=== PATIENT | female | born 1985 | race Two or more races ===

== ENCOUNTER 2021-08-18 10:09 | Outpatient (REF) | payer MEDICAID, SELFPAY ==
[2021-08-18 10:32] LABS: MANUAL DIFF FLAG NO
[2021-08-18 10:56] LABS: Appearance Urine CLEAR; Color Urine STRAW; Glucose Urine UA NEG (NEG); Leukocyte Esterase Urine TRACE (NEG); Nitrite Urine NEG (NEG); PH 6.5 (5.0-8.0); Urine Blood NEG (NEG); Urine Ketones NEG (NEG); Urine Protein NEG (NEG-TRACE)
[2021-08-18 10:56] LABS: Basophils Percent Auto 0.1 % (0-2); Eosinophils Absolute Auto 0.2 X10*3/uL (0.0-0.4); Hematocrit 30.7 % (37.0-47.0); Hemoglobin 10.6 g/dl (12.0-16.0); Imm Gran Abs Auto 0.07 X10*3/uL (0.00-0.03); Imm Gran Pct Auto 0.9 % (0.0-0.4); Lymphocytes Absolute Auto 1.6 X10*3/uL (1.2-4.9); Lymphocytes Percent Auto 20.6 % (20-40); Mean Corpuscular HGB Conc 34.5 g/dl (31.0-35.0); Mean Corpuscular Hemoglobin 30.5 pg (27.0-33.0); Mean Corpuscular Volume 88.5 fL (80.0-98.0); Mean Platelet Volume 9.2 fL (9.4-12.3); Monocytes Absolute Auto 0.4 X10*3/uL (0.1-1.2); Monocytes Percent Auto 5.6 % (2-11); Neutrophils Absolute Auto 5.4 x10*3/uL (2.0-8.3); Neutrophils Percent Auto 70.8 % (45-73); Platelet Count 289 X10*3/uL (160-400); Red Blood Count 3.47 X10*6/uL (4.20-5.50); Red Cell Distribution Width 13.4 % (11.0-16.0); White Blood Count 7.6 X10*3/uL (4.8-10.8)
[2021-08-18 11:09] LABS: Bacteria Urine 1+ /LPF; Squamous Epithelial Cell Urine 3+ /LPF
[2021-08-18 11:10] LABS: RBC Urine 0-2 /HPF (0)
[2021-08-18 11:11] LABS: WBC Urine 0-2 /HPF (0-4)
[2021-08-18 11:39] LABS: Alanine Aminotransferase 14 U/L (0-31); Albumin Level 3.5 g/dL (3.5-5.0); Alkaline Phosphatase 46 U/L (39-117); Anion Gap 10 (12-20); Aspartate Amino Transferase 15 U/L (5-31); Bilirubin Direct < 0.2 mg/dL (0.0-0.5); Bilirubin Total < 0.2 mg/dL (0.0-1.0); Blood Urea Nitrogen 6 mg/dL (9-16); Carbon Dioxide 23 mmol/L (22-29); Chloride 107 mmol/L (96-108); Cholesterol 160 mg/dL; Estimated Glomerular Filt Rate > 60; Glucose Random 123 mg/dL (60-115); HDL Cholesterol 45 mg/dL; LDL Cholesterol Calculated 52 mg/dl; Potassium 3.5 mmol/L (3.3-5.1); Sodium 136 mmol/L (135-145); Total Protein 6.6 g/dL (6.5-8.0); Triglycerides 318 mg/dL
[2021-08-18 12:01] LABS: Thyroid Stimulating Hormone 1.81 uIU/mL (0.32-4.0)
== END 2021-08-18 10:10 | disposition home or self-care (01) ==
LOC: HO.LAB 10:09
PROVIDERS: Visit Provider Student in an Organized Health Care Education/Training Program
DX: O09.521 Supervision of elderly multigravida, first trimester (principal)
CPT/HCPCS: 36415; 80048; 80061; 80076; 81001; 84443; 84702; 85025